=== PATIENT | female | born 1970 | race Caucasian/White ===

== ENCOUNTER → 2017-01-17 | Outpatient (CLI) | payer BC ==
[~2017-01-17] MED LIST: FLEXERIL10 M1; FLEXERIL10 M1 PO; NAPROSYN500 MG; NAPROSYN500 MG PO
--- NOTE | ~2017-01-17 | TH ---
Unit #: [id number] #: [id number] Patient: EILEEN WILCOX [id number] [address] [address] [id number] O MR#: [id number] NAME: EILEEN WILCOX : 1970 SEX: F STUDY DATE/TIME: 01/17/2017 UNIT: CN ROOM: STUDY DESCRIPTION: NUCLEAR STUDY Attending Physician: Anibal Rosales M.D. Primary Care Physician: Pasha Lopez M.D. CARDIOLOGY REPORT EXAM Stress Nuclear and ECG combined. INDICATION Dyspnea, abnormal ECG. SUMMARY The patient was given Lexiscan intravenously and the patient exercised at 1.5 miles per hour, zero percent grade. The resting ECG showed no ST segments, but with minimal stress there was 0.5 mm to [address] depression in leads II, III, aVF, V5 and V6. These changes resolved relatively quickly, within 4 minutes after injection. Heart rate increased from 85 to 130 and blood pressure increased from 148/103 to 154/98. The patient was given technetium-99m Cardiolite 10.31 and 32.6 mCi at rest and stress respectively. Appropriate views were obtained. FINDINGS The study is adequate. There is chest wall attenuation artifact seen on perfusion images, but otherwise normal perfusion throughout the myocardium. There is intestinal artifact both at rest and stress. Gated perfusion wall motion analysis demonstrates normal wall motion throughout the myocardium with end-diastolic volume small at 55 mL, ejection fraction greater than 65%. Summed stress scores is 6, summed difference scores is 4. Changes involve primarily chest wall attenuation artifact and border detection at the base. Planar imaging demonstrates no significant patient motion either at rest or stress. There is no significant lung uptake, LV or RV enlargement. IMPRESSION 1. Myocardial perfusion scan shows no ischemia or infarction. Artifact is noted. 2. Normal wall motion with excellent ejection fraction. 3. Small ventricle. Dictated by... Unit #: [id number] #: [id number] Patient: EILEEN WILCOX Karthik Escalera TD: 01/17/2017 16:09 JOB #: [id number] CARDIOLOGY REPORT Page 1 of 1 X Micah Johnson MD CARDIOLOGY REPORT
== END | disposition home or self-care (01) ==
LOC: CNUC 08:30
DX: R06.00 Dyspnea, unspecified (principal)
CPT/HCPCS: 78452; 93017; 93306; A9500; J2785

== ENCOUNTER → 2017-04-17 | Outpatient (CLI) | payer BC ==
--- NOTE | ~2017-04-17 | MY29 ---
[facility] A Service of [facility] RADIOLOGY TEXT RESULTS PATIENT: EILEEN WILCOX LOCATION: [facility] : 70 UNIT #: [id number] AGE: [address]: PAMELA FIGUEROA MD (INT MED) SEX: F ORDER DR: [id number] [facility] [address] [place], [place] [address] [id number] O MR#: [id number] Acc #: [id number] NAME: EILEEN WILCOX : 1970 SEX: F STUDY DATE/TIME: 04/17/2017 9:45 UNIT: [facility] ROOM: STUDY DESCRIPTION: MY ANTHONY SCREENING W/ CAD BILAT Attending Physician: Pamela Figueroa M.D. Referring Physician: Pamela Figueroa M.D. Ordering Physician: Pamela Figueroa M.D. Primary Care Physician: Pamela Figueroa M.D. MEDICAL IMAGING REPORT This report is preliminary unless electronic signature is present EXAM Digital screening mammogram 04/17/2017, [facility] HISTORY 46-year-old woman no risk elevation. Annual screen. COMPARISON 08/10/2010, 10/24/2011 FINDINGS Digital imaging of each breast was completed utilizing a two-view examination of each breast in craniocaudal and mediolateral-oblique projections. Review and interpretation of digital mammograms include a second review in conjunction with FDA-approved CAD device. There is a normal parenchymal presentation bilaterally consistent with the patient's age. There are no breast masses imaged and no parenchymal asymmetry is visualized. There are no suspicious microcalcifications and I see no focal architectural disturbance. IMPRESSION Negative screening digital mammogram. One-year followup recommended. Patients over the age of 40 are entered into a reminder system with target due date for the next mammogram. A result letter will also be sent to the patient. BIRADS: 1 Negative ADDENDUM Breast parenchyma is fatty replaced. Dictated by... Law Hammonds M.D. [facility] A Service [facility] RADIOLOGY TEXT RESULTS PATIENT: EILEEN WILCOX LOCATION: [facility] : 70 UNIT #: [id number] AGE: [address]: PAMELA FIGUEROA MD (INT MED) SEX: F ORDER DR: THIS IS AN ELECTRONICALLY VERIFIED REPORT Law Hammonds M.D. at 04/17/2017 1:03 PM ADELITA/marin TD: 04/17/2017 11:29 JOB #: [id number] MEDICAL IMAGING REPORT Page 1 of 1 COPY
== END | disposition home or self-care (01) ==
LOC: CWCC 09:26
DX: Z12.31 Encounter for screening mammogram for malignant neoplasm of breast (principal); R92.8 Other abnormal and inconclusive findings on diagnostic imaging of breast
CPT/HCPCS: G0202